=== PATIENT | female | born 1985 | race American Indian/Alaskan Native ===

== ENCOUNTER 2016-12-10 02:07 | Emergency (ER) | payer SELFPAY ==
[2016-12-10 05:24] VITALS: BP 138/91
== END 2016-12-10 04:05 | disposition left against medical advice (07) ==
LOC: ED 02:07
DX: R07.0 Pain in throat (principal); R22.1 Localized swelling, mass and lump, neck; Z53.21 Procedure and treatment not carried out due to patient leaving prior to being seen by health care provider

== ENCOUNTER 2017-02-13 11:00 | Outpatient (CLI) | payer OTHER | END 2017-02-13 11:01 | disposition home or self-care (01) | LOC: SLR 11:00 | PROVIDERS: ATTEND Otolaryngology | DX: G47.30 Sleep apnea, unspecified (principal) | CPT/HCPCS: 95810 ==

== ENCOUNTER 2017-02-28 11:00 | Outpatient (CLI) | payer OTHER | END 2017-02-28 11:01 | disposition home or self-care (01) | LOC: SLR 11:00 | PROVIDERS: ATTEND Otolaryngology | DX: G47.33 Obstructive sleep apnea (adult) (pediatric) (principal); R40.0 Somnolence | CPT/HCPCS: 95811 ==